=== PATIENT | female | born 1995 | race Caucasian/White ===

== ENCOUNTER 2019-03-10 17:58 | Emergency (ER) | payer OTHER ==
[~2019-03-10] VITALS: Ht 167.6 cm; Wt 75.0 kg
[2019-03-10] MEDS ORDERED: PREN29TA4 PO (18:04)
[2019-03-10] MEDS ORDERED: ACETAMINOPHEN TAB 650MG DOSE (2X325MG) PO ONE (19:15)
--- NOTE | 2019-03-10 19:58 | REP ---
Right foot: Two views. History: Right fifth metatarsal pain. Findings: Abdominal and pelvic shielding was utilized. AP and lateral views of the right foot are presented. These demonstrate normal bones, joints and soft tissues. Impression: Negative right foot radiographs. Electronically Signed by Keon Costa MD 03/10/2019 07:49 P
--- NOTE | 2019-03-10 19:59 | REP ---
Right ankle series: Two views. History: Right lateral malleolar tenderness to palpation. Findings: Abdominal and pelvic shielding was utilized. Ankle mortise is intact. No fractures seen. Soft tissues are unremarkable. Impression: Negative right ankle radiographs. Electronically Signed by Keon Costa MD 03/10/2019 07:50 P
[2019-03-10 20:32] VITALS: BP 118/71
== END 2019-03-10 21:00 | disposition home or self-care (01) ==
LOC: M ED 17:58
DX: S90.01XA Contusion of right ankle, initial encounter (principal); S90.31XA Contusion of right foot, initial encounter; S90.511A Abrasion, right ankle, initial encounter; W22.8XXA Striking against or struck by other objects, initial encounter; Y92.9 Unspecified place or not applicable; Y93.9 Activity, unspecified; Y99.9 Unspecified external cause status; Z3A.30 30 weeks gestation of pregnancy; Z79.899 Other long term (current) drug therapy; Z91.040 Latex allergy status

== ENCOUNTER 2019-05-07 05:31 | Inpatient (IN) | payer OTHER ==
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
[~2019-05-07] VITALS: Ht 167.6 cm; Wt 80.7 kg
[2019-05-07] VITALS (9 sets, daily range): BP systolic 102–118; BP diastolic 59–74
[~2019-05-07 05:31] MED LIST: PREN29TA4 PO; QC A650T3 PO
[2019-05-07] MEDS: LR 1,000 ML IV SCH ×2 (05:41→14:35)
[2019-05-07] MEDS ORDERED: LACTATED RINGER'S 1000 ML IV STA (05:41)
[2019-05-07] MEDS ORDERED: AZITHROMYCIN INJ 500 MG, VIAL MATE ADAPTER 1 EACH in D5W 250 ML IV ONE (05:45)
[2019-05-07] MEDS ORDERED: ceFAZolin SOD 2 GM in IV 1 EA IV ONE (05:45)
[2019-05-07] MEDS ORDERED: BICITRA 30ML SOLN UDC PO ONE (05:45)
[2019-05-07] MEDS ORDERED: ACETAMINOPHEN 650 MG SUPP PR ONE (05:45)
[2019-05-07] MEDS ORDERED: BUPIVACAINE HCL 0.25% 10 ML VIAL SC ONE (05:45)
[2019-05-07 06:17] LABS: HEMATOCRIT 38.8 % (36.0-47.0); MEAN CORPUSCULAR HEMOGLOBIN 30.5 pg (27.0-33.0); MEAN CORPUSCULAR HGB CONC 33.5 g/dl (32.0-36.5); MEAN CORPUSCULAR VOLUME 91.1 fl (80.0-96.0); PLATELET COUNT, AUTOMATED 185 10^3/uL (150-450); RED BLOOD COUNT 4.26 10^6/uL (4.00-5.40); WHITE BLOOD COUNT 8.4 10^3/uL (4.0-10.0)
[2019-05-07 06:40] LABS: AMPHETAMINES URINE REFLEX NEGATIVE (NEGATIVE); BARBITURATES URINE REFLEX NEGATIVE (NEGATIVE); BENZODIAZEPINES URINE REFLEX NEGATIVE (NEGATIVE); CANNABINOIDS URINE REFLEX NEGATIVE (NEGATIVE); COCAINE METABOLITE URINE REFLE NEGATIVE (NEGATIVE); METHADONE URINE REFLEX NEGATIVE (NEGATIVE); OPIATES URINE REFLEX NEGATIVE (NEGATIVE); PHENCYCLIDINE URINE REFLEX NEGATIVE (NEGATIVE)
[2019-05-07] MEDS ORDERED: METOCLOPRAMIDE INJ 10MG/2ML VIAL (J2765) IV PRN (07:48)
[2019-05-07] MEDS ORDERED: ONDANSETRON 4MG/2ML VIAL (J2405) IV PRN ×2 (07:48→09:30)
[2019-05-07] MEDS ORDERED: NALOXONE INJ 0.4 MG/1 ML VIAL (J2310) IV PRN ×2 (07:48)
[2019-05-07] MEDS ORDERED: NALBUPHINE HCL 10 MG/ML AMP (J2300) IV PRN ×2 (07:48→09:30)
[2019-05-07] MEDS ORDERED: diphenhydrAMINE INJ 50MG/ML VIAL (J1200) IV PRN (07:48)
[2019-05-07] MEDS ORDERED: PHENYLephrine HCL 500 MCG/5 ML (100MCG/ML) SYRINGE (J2370) As Ordered ONE (07:52)
[2019-05-07] MEDS ORDERED: ONDANSETRON 4MG/2ML VIAL (J2405) As Ordered ONE (07:55)
[2019-05-07] MEDS ORDERED: MORPHINE PRES-FREE INJ 10 MG/10 ML VIAL (J2274) As Ordered ONE (07:55)
[2019-05-07] MEDS ORDERED: dexameTHASONE 4 MG/ML 1ML VIAL (J1100) As Ordered ONE (07:55)
[2019-05-07] MEDS ORDERED: KETOROLAC 60 MG/2 ML VIAL (J1885) As Ordered ONE (07:55)
[2019-05-07] MEDS ORDERED: OXYTOCIN INJ 10 UNITS/ML VIAL (J2590) As Ordered ONE (07:55)
[2019-05-07 08:31] LABS: CORD GAS ABE V -1.4; CORD GAS HCO3 V 24.3 MEQ/L; CORD GAS O2 SAT V 67.5 %; CORD GAS PCO2 V 44.8 mmHg; CORD GAS PH V 7.353 UNITS; CORD GAS PO2 V 28.5 mmHg; CORD GAS SBC V 22.6 MEQ/L; CORD GAS TCO2 V 25.7 MEQ/L
[2019-05-07 08:32] LABS: CORD GAS ABE A 0.3; CORD GAS HCO3 A 28.3 MEQ/L; CORD GAS O2 SAT A 22.3 %; CORD GAS PCO2 A 60.4 mmHg; CORD GAS PH A 7.289 UNITS; CORD GAS PO2 A 13.5 mmHg; CORD GAS SBC A 22.9 MEQ/L; CORD GAS TCO2 A 30.2 MEQ/L
[2019-05-07] MEDS ORDERED: OXYTOCIN DRIP 30 UNITS in IV 1 EA IV SCH (08:53)
[2019-05-07] MEDS ORDERED: MOM 30ML SUSPENSION UDC PO PRN (09:00)
[2019-05-07] MEDS ORDERED: MEASLES,MUMPS,RUBELLA VACCINE INJ (MMR-II) (90707) SC SCH (09:00)
[2019-05-07] MEDS ORDERED: ACETAMINOPHEN TAB 650MG DOSE (2X325MG) PO PRN (09:00)
[2019-05-07] MEDS ORDERED: ANUSOL HC CREAM 30GM TOP PRN (09:00)
[2019-05-07] MEDS: PRENATAL VITAMINS CHEWABLE TABLET PO SCH (09:00)
[2019-05-07] MEDS ORDERED: ACETAMINOPHEN 500 MG TAB PO PRN (09:00)
[2019-05-07] MEDS ORDERED: METHYLERGONOVINE MALEATE 0.2 MG/ML VIAL (J2210) IM PRN (09:00)
[2019-05-07] MEDS ORDERED: OXYTOCIN INJ 10 UNITS/ML VIAL (J2590) IV ONE (09:00)
[2019-05-07] MEDS ORDERED: IBUPROFEN 800 MG TAB PO PRN (09:00)
[2019-05-07] MEDS ORDERED: PERCOCET 5MG/325MG TAB PO PRN ×2 (09:00)
[2019-05-07] MEDS ORDERED: RHOGAM 300 MCG (1500 IU) INJ (J2790) IM SCH (09:00)
[2019-05-07] MEDS ORDERED: IBUPROFEN 600 MG TAB PO PRN (09:00)
[2019-05-07] MEDS ORDERED: fentaNYL 100 MCG/2 ML INJECTION (J3010) IV PRN (09:30)
[2019-05-07] MEDS ORDERED: OXYTOCIN 30 UNITS IN 0.9% NaCl 500ML IV BAG (J2590) As Ordered ONE (09:54)
[2019-05-07] MEDS ORDERED: INFLUENZA QUADRIVALENT PF VACCINE 0.5ML SYRINGE (90686) IM PRN (12:00)
[2019-05-07] MEDS: DOCUSATE SODIUM 100 MG CAP PO PRN (12:26)
[2019-05-07] MEDS: KETOROLAC 30 MG/ML VIAL (J1885) IV SCH ×2 (14:35→20:04)
[2019-05-08 02:00] VITALS: BP 106/65
[2019-05-08] MEDS: KETOROLAC 30 MG/ML VIAL (J1885) IV SCH (02:04)
[2019-05-08 05:00] VITALS: BP 97/64
[2019-05-08 07:43] LABS: HEMATOCRIT 34.3 % (36.0-47.0); HEMOGLOBIN 11.4 g/dl (12.0-15.5); MEAN CORPUSCULAR HEMOGLOBIN 30.8 pg (27.0-33.0); MEAN CORPUSCULAR HGB CONC 33.2 g/dl (32.0-36.5); MEAN CORPUSCULAR VOLUME 92.7 fl (80.0-96.0); PLATELET COUNT, AUTOMATED 161 10^3/uL (150-450); WHITE BLOOD COUNT 9.4 10^3/uL (4.0-10.0)
[2019-05-08] MEDS: PRENATAL VITAMINS CHEWABLE TABLET PO SCH (09:31)
[2019-05-08] MEDS: IBUPROFEN 800 MG TAB PO SCH ×2 (09:31→17:40)
--- NOTE | 2019-05-08 09:38 | IPNPDOC ---
Progress Note Date of Service: May 08, 2019 Day#: 1 Progress Note SUBJECT: [Clara] is a [24]-year-old [2] now Para [2]-[0]-[0]-[2] status post uncomplicated Repeat Section at [39]-[0]/7 weeks' on [[id number]], doing well day # [1]. She has been ambulating, voiding spontaneously and passing flatus without issue and tolerating regular diet. Breast feeding without issue. Reports lochia is [like a normal period]. Pain controlled. OBJECTIVE: VITAL SIGNS: Within normal limits, afebrile. Alert and oriented times three. Breath sounds clear to auscultation. Abdomen: Fundus firm at U-1. Soft, NTTP. Incision: C/D/I [Minimal] lochia. ASSESSMENT: [Clara] is a [24]-year-old [2] now Para [2]-[0]-[0]-[2] status post uncomplicated Repeat Section at [39]-[0]/7 weeks' on [[id number]], doing well day # [1]. Vitals within normal limits, afebrile, hemodynamically stable with no evidence of infection. PLAN: 1. Continue Routine obstetric care. 2. Encourage breast feeding and ambulation. 3. Mirena for contraception. 4. Percocet and Motrin for pain. Colace for bowel regime. 5. VTE: early ambulation. 6. Dispo: home on day 2. Rohini Caldwell, VS, I&O, 24H, Rodrigo Vital Signs/I&O Vital Signs Date Time Temp Pulse Resp B/P (MAP) Pulse Ox O2 Delivery O2 Flow Rate FiO2 05/08/19 05:00 98.5 63 18 97/64 (75) 97 I&O- Last 24 Hours up to 6 AM 05/08/19 06:00 Intake Total 3910 ml Output Total 1925 ml Balance 1985 ml Laboratory Data 24H LABS Laboratory Tests 2 05/08/19 07:24: Nucleated Red Blood Cells % (auto) 0.0 CBC/BMP Laboratory Tests 05/08/19 07:24 Red Blood Count 3.70 L, Mean Corpuscular Volume 92.7, Mean Corpuscular Hemoglobin 30.8, Mean Corpuscular Hemoglobin Concent 33.2, Red Cell Distribution Width 12.9 ROHINI CALDWELL. DO May 08, 2019 09:38
[2019-05-08] MEDS: DOCUSATE SODIUM 100 MG CAP PO PRN (17:41)
[2019-05-08 18:00] VITALS: BP 108/72
[2019-05-09] MEDS: IBUPROFEN 800 MG TAB PO SCH ×2 (01:49→09:25)
[2019-05-09 06:05] VITALS: BP 98/55
--- NOTE | 2019-05-09 07:33 | IPNPDOC ---
Progress Note Date of Service: May 09, 2019 Day#: 2 Progress Note SUBJECT:patient is a 24 yo s/p RLTCD ppd #2 without concerns today. She has been ambulating, voiding spontaneously without issue and tolerating regular diet. Breast feeding without issue. OBJECTIVE: VITAL SIGNS: Within normal limits, afebrile. Alert and oriented times three. Abdomen: Fundus firm at U-2. Soft, NTTP. incision c/d/i steri strips on. ASSESSMENT: patient is a pod/ppd #2, doing well PLAN: 1. Discharge instructions given 2. Encourage breast feeding and ambulation. 3. plan mirena IUD for contraceptive. 4. 2 weeks incision check with 6wks visit. 5. Discussed return precautions. DO Susana VS, I&O, 24H, Fishbone Vital Signs/I&O Vital Signs Date Time Temp Pulse Resp B/P (MAP) Pulse Ox O2 Delivery O2 Flow Rate FiO2 05/09/19 06:05 98.6 67 17 98/55 (69) 99 ROBERT EDDY DO May 09, 2019 07:33
--- NOTE | 2019-05-09 07:39 | OBDS ---
[facility] Obstetrical Discharge Sum. Obstetrical Discharge Summary Analytical Data Miner/Provider: ROBERT MEZA DO Date: May 09, 2019 : 2 Term: 2 Pre-term: 0 Abortions: 0 Livin VDRL: ABO Blood Group (A) Rh: Positive Rubella: Immune Infant Sex: Female Weight: pounds (6), ounces (14) Anesthesia: Regional Anesthesia A/P, Post Course List any complications Admission diagnosis: gravid labor Discharge diagnosis: / status post repeat delivery Condition at Discharge: stable Discharge Instructions: Home Activity: as tolerated Diet: regular Medications: fill at ft. drum Follow-up: 2wks Hospital course: Patient admitted for planned repeat delivery. Surgery uncomplicated. course uncomplicated and patient discharged on day #2. DO NUNU Meza LUAT N. DO May 09, 2019 07:39
[2019-05-09] MEDS: PRENATAL VITAMINS CHEWABLE TABLET PO SCH (09:24)
--- NOTE | 2019-05-13 13:45 | RO ---
DATE OF PROCEDURE: 05/07/2019 PREOPERATIVE DIAGNOSIS: Elective repeat section. POSTOPERATIVE DIAGNOSIS: Elective repeat section. OPERATION PROPOSED: Repeat section. OPERATION PERFORMED: Repeat section. SURGEON: Brian Mendez MD PIPE STEM ALIGNER: Dr. Gates ESTIMATED BLOOD LOSS: 200 mL. DESCRIPTION OF PROCEDURE: After adequate time-out, prepped and draped, in the supine position, Baez catheter in the bladder draining clear urine. Acetaminophen suppository 1300 mg per rectum, sequentials in place, and antibiotics appropriately 1 hour preoperative. A Pfannenstiel incision was made through the previous one, passing through abdominal layers, securing hemostasis. We excised off the keloid skin scar from previous issues. Opening peritoneal cavity, we were greeted with a uterine window, especially on the left side. We could see the hair in the amniotic fluid through the window. Basically, an artificial rupture of membranes (ARM) was done, draining clear liquid, delivered a livebirth female infant weighing 3110 grams, 6 pounds 14 ounces, scores of 8 and 9 at 1 and 5 minutes, respectively. The arterial pH was 7.28, base excess 0.3, venous pH 7.35, base excess -1.4. The placenta was manually removed. Three-vessel cord, membranes, and tissues intact. We swept out the lower segment and the upper segment. No evidence of tissue or placental fragments. The uterus contracted well on Pitocin. We oversewed the lower segment, the upper segment in two layers, and then imbricating the second layer, reperitonealization was performed. With instrument and pad count correct, both ovaries and tubes appeared to be normal, the abdomen was then closed, running stitch for the perineum, same for the fascia, interrupted for the subcutaneous. Marcaine 0.25% 10 mL to the skin subcuticular stitch. Exira and Telfa, and the patient was sent back to recovery in good condition.
== END 2019-05-09 12:42 | disposition home or self-care (01) | DRG 773 ==
LOC: M LDI 05:31 → M OBS 10:45
PROVIDERS: ADMIT Obstetrics & Gynecology; ATTEND Obstetrics & Gynecology
PROC: 10D00Z1 Extraction of Products of Conception, Low, Open Approach (ICD-10-PCS; principal; 2019-05-07 07:30)
DX: O34.211 Maternal care for low transverse scar from previous cesarean delivery (principal); Z3A.39 39 weeks gestation of pregnancy; Z37.0 Single live birth

== ENCOUNTER → 2020-10-12 | Outpatient (CLI) | payer SELFPAY | LOC: M LABSMTC 12:25 | PROVIDERS: ATTEND Pediatrics | DX: Z11.52 Encounter for screening for COVID-19 (principal) ==